=== PATIENT | female | born 1935 | race Two or more races ===

== ENCOUNTER 2020-03-03 00:46 | Emergency (ER) | payer BC, OTHER ==
[~2020-03-03] VITALS: Ht 157.5 cm; Wt 83.5 kg
--- NOTE | 2020-03-03 01:15 | NUR ---
[facility]IBRA 878 FOR C/O GLF AT HOME. PT REPORTED NO INJURY OR PAIN S/P FALL -KO TO ER BED 4
--- NOTE | 2020-03-03 01:34 | NUR ---
PT TAKEN TO RADIOLOGY
--- NOTE | 2020-03-03 05:31 | NUR ---
CALLED [facility], NOTHING AVAILABLE YET, WILL CALL AGAIN IN HALF AN HOUR
--- NOTE | 2020-03-03 06:01 | NUR ---
PT TOO WEAK TO WALK ON HER OWN, VERY UNSTEADY AND TREMBLING, UNABLE TO MAKE IT HOME ON HER OWN
[2020-03-03 07:19] VITALS: BP 179/84
--- NOTE | 2020-03-03 07:19 | NUR ---
Patient discharged to home in stable condition picked up by son. Written and verbal after care instructions given. Patient verbalizes understanding of instruction.
== END 2020-03-03 07:20 | disposition home or self-care (01) ==
LOC: EDBD 00:48 → ER 00:48
DX: S09.8XXA Other specified injuries of head, initial encounter (principal); I10 Essential (primary) hypertension; M06.9 Rheumatoid arthritis, unspecified; E07.9 Disorder of thyroid, unspecified; W18.39XA Other fall on same level, initial encounter; Y93.89 Activity, other specified; Y92.89 Other specified places as the place of occurrence of the external cause; Y99.8 Other external cause status
CPT/HCPCS: 70450-TC